=== PATIENT | female | born 1980 | race Caucasian/White ===

== ENCOUNTER 2020-09-11 11:45 | Outpatient (CLI) | payer MEDICAID ==
[2020-09-11] VITALS (17 sets, daily range): BP systolic 96–124; BP diastolic 57–85
[~2020-09-11 11:45] MED LIST: COL100C PO; HYDR-4383 PO; NO HOME MEDS; NORCO10T PO; PROM25TA14 PO
== END 2020-09-11 23:59 | disposition home or self-care (01) ==
LOC: CARD DIAG 11:45
PROVIDERS: ATTEND Physician Assistant Medical
DX: R55 Syncope and collapse (principal)
CPT/HCPCS: 93660